=== PATIENT | female | born 1955 | race Two or more races ===

== ENCOUNTER → 2020-11-20 | Outpatient (CLI) | payer OTHER ==
[~2020-11-20] VITALS: Ht 30.5 cm; Wt 0.5 kg
[2020-11-20] VITALS (7 sets, daily range): BP systolic 122–154; BP diastolic 71–79
[~2020-11-20] MED LIST: ACETAMINOPHEN 500 MG TAB PO ONE; ONDANSETRON HCL 4 MG/2 ML VIAL IV ONE; ONDANSETRON HCL 4 MG/2 ML VIAL ONE; [UNRECOGNIZED DRUG - MIXTURE] IV ONE
== END | disposition home or self-care (01) ==
LOC: ER 10:04
PROVIDERS: ATTEND Internal Medicine
DX: U07.1 COVID-19 (principal)
CPT/HCPCS: J2405